=== PATIENT | female | born 1975 | race Caucasian/White ===

== ENCOUNTER 2017-03-05 01:46 | Emergency (ER) | payer MEDICAID, SELFPAY ==
[~2017-03-05] VITALS: Ht 177.8 cm; Wt 73.6 kg
[2017-03-05] MEDS ORDERED: BACITRACIN ZINC OINT 500U/GM, 0.9 GM ONE (03:33)
[2017-03-05 04:09] VITALS: BP 114/78
== END 2017-03-05 04:11 | disposition home or self-care (01) ==
LOC: ED 04:00
DX: L03.116 Cellulitis of left lower limb (principal); G89.29 Other chronic pain; M79.662 Pain in left lower leg; F15.20 Other stimulant dependence, uncomplicated; Z86.718 Personal history of other venous thrombosis and embolism
CPT/HCPCS: 99283; Q0177